=== PATIENT | female | born 1995 | race Caucasian/White ===

== ENCOUNTER 2019-05-27 11:37 | Emergency (ER) | payer OTHER ==
[~2019-05-27] VITALS: Ht 160 cm; Wt 77.1 kg
[2019-05-27 11:42] VITALS: BP 142/79
[2019-05-27] MEDS ORDERED: CENTANY30 GM TOP (11:53)
== END 2019-05-27 12:24 | disposition home or self-care (01) ==
LOC: M.ERS 11:37
DX: S61.211A Laceration without foreign body of left index finger without damage to nail, initial encounter (principal); W45.8XXA Other foreign body or object entering through skin, initial encounter; Y93.89 Activity, other specified; Y92.89 Other specified places as the place of occurrence of the external cause; Y99.0 Civilian activity done for income or pay